=== PATIENT | male | born 1985 | race African-American/Black ===

== ENCOUNTER 2023-06-08 16:54 | Emergency (ER) | payer OTHER, SELFPAY ==
--- NOTE | ~2023-06-08 | CT_ITS ---
EXAMINATION: CT head/brain wo IV con CLINICAL INFORMATION: Reason for Exam dizziness COMPARISON: None. TECHNIQUE: Contiguous axial imaging was performed from the skull base to vertex without intravenous contrast. Sagittal and coronal reformatted images were obtained. This CT examination was performed using dose optimization techniques as appropriate, variously including the following: * Automated exposure control * Adjustment of mA and/or kV according to patient size (this includes techniques or standardized protocols for targeted exams where dose is matched to indication/reason for exam; i.e. extremities or head) Use of iterative reconstruction technique DLP: 711.42 mGy-cm FINDINGS: No acute osseous or soft tissue abnormality. Persistent metopic suture, an anatomic variant. The mastoid air cells and visualized portions of the paranasal sinuses are well aerated. There is no evidence of acute intracranial hemorrhage or territorial infarction. No abnormal mass effect or midline shift is seen. Garsia to white matter differentiation is well preserved. No extra-axial fluid collections are identified. No hydrocephalus. No significant volume loss. There is no abnormal attenuation within the brain parenchyma. CT/CT head/brain wo IV con IMPRESSION: No acute intracranial abnormality including hemorrhage, mass effect, hydrocephalus, or acute territorial edematous infarction.
--- NOTE | ~2023-06-08 | XR_ITS ---
EXAMINATION: XR CHEST CLINICAL INFORMATION: Dizziness COMPARISON: None available. TECHNIQUE: Frontal view of the chest was obtained. FINDINGS: Slightly low lung volumes with otherwise clear lungs. No pleural effusion or pneumothorax. Normal heart size and mediastinal contours. XR/XR chest 1V IMPRESSION: No acute cardiopulmonary abnormality.
--- NOTE | 2023-06-08 17:08 | ED.GENADULT ---
HPI - General Adult General Chief complaint: Dizziness Stated complaint: Dizziness Time Seen by Provider: 06/08/23 18:41 Source: patient and family ( spouse) Mode of arrival: ambulatory Limitations: no limitations History of Present Illness HPI narrative: This is a [id number]-male, with no known medical problems, presenting to the emergency department with a complaint of dizziness x 1 week. Pt states that over the course of the last week, he has had intermittent dizziness which occur with position changing especially at nighttime when he turns. Reports that he has had no chest pain or SOB. NO hx of similar symptoms. No recent illnesses. Related Data Previous Rx's Medication Instructions Recorded amlodipine 2.5 mg tablet 2.5 mg PO DAILY #30 tabs 06/08/23 meclizine 25 mg tablet 25 mg PO BID PRN motion sickness 06/08/23 #14 tabs Allergies Allergy/AdvReac Type Severity Reaction Status Date / Time No Known Allergies Allergy Verified 06/08/23 17:13 Review of Systems Review of Systems: all other systems are reviewed and are negative Constitutional: Reports as per HPI and Reports no additional constitutional complaints Eyes: Reports as per HPI and Reports no additional eye complaints Reports system reviewed and no additional complaints, except as documented Cardiovascular: Reports as per HPI and Reports no additional cardiovascular complaints Respiratory: Reports as per HPI and Reports no additional respiratory complaints Gastrointestinal: Reports as per HPI and Reports no additional gastrointestinal complaints Genitourinary: Reports no additional female genitourinary complaints Musculoskeletal: Reports no additional musculoskeletal complaints Skin/Breast: Reports system reviewed and no additional complaints, except as docu Psychiatric: Reports no additional psychiatric complaints Endocrine: Reports no additional endocrine complaints Hematologic/Lymphatic: Reports no additional hematologic/lymphatic complaints Allergic/Immunologic: Reports no additional allergic/immunologic complaints Reports system reviewed and no additional complaints, except as documented and Reports Abnormal speech present [facility] Social History Social History Alcohol intake: current Alcohol intake frequency: a few times a week Smoked in Last 30 Days: No Use of substances other than those prescribed or required for medical reasons: No Advance Directives: No Advance Directives Information Provided: Yes Physical Exam ED Vital Signs: Vital Signs - 24 hr 06/08/23 17:10 06/08/23 18:00 06/08/23 21:56 Temperature 97.9 F 98.2 F 98.1 F Pulse Rate 94 93 85 Respiratory Rate 16 18 15 Blood Pressure 158/87 H 145/101 H 138/101 H Pulse Oximetry 99 98 98 Oxygen Delivery Method Room Air Room Air Room Air BMI result Body Mass Index 30.8 Vital signs have been reviewed and appear to be correct. Blood pressure elevated. Heart rate normal. Respiratory rate normal. Temperature normal. Oxygen saturation normal. Appearance: Alert. Oriented X3. No acute distress. Head: Normal external exam. Normocephalic. Atraumatic. No Mixon signs noted. No raccoon eyes noted Eyes: PERRLA. EOMI. Conjunctiva and sclera normal. Eyelids normal. ENT: TM's Normal. Pharynx normal. Uvula midline. Moist mucous membranes. No trismus noted. No drooling noted. No muffled voice noted. Neck: Normal inspection. Neck supple. FROM. No adenopathy. Thyroid Normal. No meningeal signs. No neck mass noted. CVS: Normal heart rate and rhythm. Heart sound normal. No murmurs noted. Pulses normal throughout. Respiratory: No respiratory distress. Painless inspiration. Breath sounds normal. No wheezes/rales/rhonchi noted. Chest nontender. No accessory muscle usage noted or decreased air movement noted. Abdomen: Soft and nontender. Bowel sounds normal in all 4 quadrants. No distention noted. No organomegaly noted. No visible injury noted. Back: No CVA tenderness. Full range of motion noted. Skin: Skin warm and dry. Normal skin color. Normal skin turgor. No rashes/lesions/lacerations noted. Extremities: No lower extremity edema. Extremities exhibit normal range of motion. Extremities nontender. Neuro: Oriented X 3. Cranial nerve exam: II-XII are grossly intact No motor deficit. No sensory deficit. Reflexes normal. NIH Stroke Scale Time: 19:13 Level of Consciousness: Alert Level of Consciousness Questions: Answers both questions correctly Level of Consciousness Commands: Performs both tasks correctly Best Gaze: Normal Visual: No visual loss Facial Palsy: Normal Motor Arm (Right): No drift Motor Arm (Left): No drift Motor Leg (Right): No drift Motor Leg (Left): No drift Limb Ataxia: Absent Sensory: Normal Best Language: No aphasia Dysarthia: Normal Extinction and Inattention: No abnormality Score: 0 Course Course Course Narrative: peripheral vertigo. Left shift with no leukocytosis will check urine/chest x-ray /viral panel. Reevaluation(s) Reevaluation #1: patient feels better with negative head CT and normal neuro exam, left shift without leukocytosis for unclear etiology. Found to have slightly elevated Diastat blood pressure will start the patient on and and to follow-up with PCP, Will discharge on meclizine and follow-up with PCP. Time: 21:46 Medications Administered Discontinued Medications Generic Name Dose Route Start Last Admin Trade Name [place] PRN Reason Stop Dose Admin Meclizine HCl 25 mg 06/08/23 18:56 06/08/23 19:30 Meclizine Hcl 25 Mg Tablet PO 06/08/23 18:57 25 mg ONCE ONE Administration Medical Decision Making Lab Data 06/08/23 17:58 06/08/23 17:58 Labs: Lab Results 06/08/23 06/08/23 Range/Units 17:58 20:38 WBC 8.7 (4.8-10.8) X10*3/uL RBC 5.46 (4.60-5.80) X10*6/uL Hgb 16.7 (14.0-18.0) g/dl Hct 47.8 (42.0-52.0) % MCV 87.5 (80.0-98.0) fL MCH 30.6 (27.0-33.0) pg MCHC 34.9 (31.0-36.0) g/dl RDW 13.7 (11.0-16.0) % Plt Count 181 (160-400) X10*3/uL MPV 12.0 (9.4-12.4) fL Immature Gran % (Auto) 1.8 H (0.0-0.4) % Neut % (Auto) 46.8 (45-73) % Lymph % (Auto) 36.3 (20-40) % [place] % (Auto) 12.3 H (2-11) % Eos % (Auto) 1.5 (0-4) % Baso % (Auto) 1.3 (0-2) % Lymph # (Auto) 3.2 (1.2-4.9) X10*3/uL [place] # (Auto) 1.1 (0.1-1.2) X10*3/uL Eos # (Auto) 0.1 (0.0-0.4) X10*3/uL Baso # (Auto) 0.1 (0.0-0.2) X10*3/uL Abs Immat Gran (auto) 0.16 H (0.00-0.03) X10*3/uL Absolute Neuts (auto) 4.1 (2.0-8.3) x10*3/uL Absolute Nucleated RBC 0.000 (0.0-0.012) X10*3/uL Nucleated RBC % (auto) 0.0 (0.0-0.2) /100WBC Smear Tech's Comments VERIFIED Sodium 141 (135-145) mmol/L Potassium 4.2 (3.3-5.1) mmol/L Chloride 106 (96-108) mmol/L Carbon Dioxide 22 (22-29) mmol/L Anion Gap 17 (12-20) BUN 16 (9-16) mg/dL Creatinine 0.83 (0.5-1.4) mg/dL Estim Creat Clear Calc 135.3 Estimated GFR > 60 Random Glucose 85 (60-115) mg/dL Calcium 10.0 (8.4-10.2) mg/dL Magnesium 1.8 (1.6-2.6) mg/dL Total Bilirubin 0.3 (0.0-1.0) mg/dL Direct Bilirubin 0.1 (0.0-0.5) mg/dL AST 22 (5-37) U/L ALT 47 H (0-40) U/L Alkaline Phosphatase 110 (39-117) U/L Total Protein 8.1 H (6.5-8.0) g/dL Albumin 4.4 (3.5-5.0) g/dL Urine Color Yellow Urine Appearance Clear Urine pH 6.0 (5.0-9.0) Ur Specific Halfway 1.020 (1.005-1.025) Urine Protein 100 (2+) H (Neg-Trace) mg/dL Urine Glucose (UA) Negative (Negative) mg/dL Urine Ketones Negative (Negative) mg/dL Urine Blood Small (1+) H (Negative) Urine Nitrite Negative (Negative) Ur Leukocyte Esterase Negative (Negative) Urine RBC 6-10 H (0-2) /HPF Urine WBC 0-5 (0-5) /HPF Ur Squamous Epith Cells 0-2 (0-2) /HPF Urine Bacteria None Seen (None Seen) Hyaline Casts 0-2 (0-2) /LPF Influenza Type A (PCR) NEGATIVE (Negative) Influenza Type B (PCR) NEGATIVE (Negative) RSV RNA Qual (PCR) NEGATIVE (Negative) SARS-CoV-2 RNA (RT-PCR) NEGATIVE (Negative) Discharge Plan Discharge Clinical Impression: Peripheral positional vertigo, Essential hypertension Patient Disposition: Home, Self-Care Instructions: Vertigo (ED), Chronic Hypertension (ED) Prescriptions: New meclizine 25 mg tablet 25 mg PO BID PRN (Reason: motion sickness) Qty: 14 0RF amlodipine 2.5 mg tablet 2.5 mg PO DAILY Qty: 30 0RF
[2023-06-08 17:10] VITALS: BP 158/87; PULSE 94; RESP 16; TEMP 36.6; O2SAT 99; BMI 30.8
[2023-06-08 18:00] VITALS: BP 145/101; PULSE 93; RESP 18; TEMP 36.8; O2SAT 98
--- NOTE | 2023-06-08 19:32 | PC.NURSE ---
this rn assumed care. pt a&ox4, respirations even and unlabored. pt reports intermittent dizziness for one week. pt reports the dizziness gets worse as he lays down and reports the room is spinning when he lays down. pt denies any blrriness in vision and headaches. denies injury. pt denies nausea, vomiting and diarrhea. pt medicated per mar.
--- NOTE | 2023-06-08 19:45 | PC.NURSE ---
upon this nurse assuming care, pt was noted to be standing at bedside adjusting the bed. pt stood with steady gait and bent over without difficulty.
[2023-06-08 21:56] VITALS: BP 138/101; PULSE 85; RESP 15; TEMP 36.7; O2SAT 98
== END 2023-06-08 22:08 | disposition home or self-care (01) ==
PROVIDERS: Emergency Provider Emergency Medicine
DX: H81.399 Other peripheral vertigo, unspecified ear (principal); I10 Essential (primary) hypertension; Z20.822 Contact with and (suspected) exposure to COVID-19; Z20.828 Contact with and (suspected) exposure to other viral communicable diseases
CPT/HCPCS: 0241U; 36415; 70450; 71045; 80048; 80076; 81001; 83735; 85025; 93005; 99284; 99285

== ENCOUNTER 2025-07-23 13:33 | Outpatient (AMB) | payer OTHER, SELFPAY ==
--- NOTE | 2025-07-23 13:35 | A.OFFPC_ITS ---
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 Accompanied by: Self / Same As Patient Allergies No Known Allergies Allergy (Verified 07/23/25 15:11) Medication List - Last Reconciled 07/23/25 by Nilsa Garrett PA-C No Known Home Meds Tobacco use date assessed: 07/23/25 Dental Screening Dental Screen Date: 07/23/25 Did you have a dental visit in the last 12 months?: Yes Did you have a dental problem in the last 6 months where you did not have access to dental care?: No Was dental information given to patient?: Patient has dentist HPI HPI Comments History of Present Illness Details History of Present Illness The patient is a 40 year old individual presenting for a new patient appointment and an annual physical. The patient denies any known past medical history and is not currently taking any medications. Regarding family history, the patient reports that the patient's mother from cancer. It was later clarified that the patient's mother had stage 4 uterine cervical adenocarcinoma with pulmonary metastases. Social History - Tobacco Use: The patient denies smokin g. - Alcohol Use: The patient reports occas ional alcohol consumption. [facility] Medical History (Updated 07/23/25 @ 15:25 by Nilsa Garrett PA-C) Family history of lung cancer Family history of malignant neoplasm of cervix uteri Annual physical exam Family History Father No problems noted. Mother Cancer Social History Housing: House Alcohol intake: current Alcohol intake frequency: holidays/special occasions only Patient Tobacco Use Status: Never used Tobacco service: No Current occupational status: employed Cognitive needs: No Hearing needs: No Vision needs: No Questionnaire PHQ-9 Over the last 2 weeks, how often have you been bothered by any of the following problems? 1. Little interest or pleasure in doing things: not at all 2. Feeling down, depressed, or hopeless: not at all 3. Trouble falling or staying asleep, or sleeping too much: not at all 4. Feeling tired or having little energy: not at all 5. Poor appetite or overeating: not at all 6. Feeling bad about yourself - or that you are a failure or have let yourself or your family down: not at all 7. Trouble concentrating on things, such as reading the newspaper or watching television: not at all 8. Moving or speaking so slowly that other people could have noticed. Or the opposite - being so fidgety or restless that you have been moving around a lot more than usual: not at all 9. Thoughts that you would be better off or of hurting yourself in some way: not at all Total score: 0 Depression Screening Interpretation: Negative Depression Screening Done: Yes 01510 - PHQ-9 Billing: Yes Source: Developed by Drs. Joe Goode, Lydia Nevarez, Gordon Griggs and colleagues, with an educational kim from [email or web address]. Thrive Questionnaire Date Thrive assessed: 07/23/25 I am a: Patient What is your living situation today?: I have a steady place to live Within the past 12 months, did the food you bought not last and you didn't have the money to get more?: Never true Within the past 12 months, did you worry whether your food would run out before you got money to buy more?: Never true Do you have trouble paying for medicines?: No Do you have trouble getting transportation to medical appointments?: No Do you have trouble paying your heating and electricity bill?: No Do you have trouble taking care of your child, family member or friend?: No Do you have trouble with day-to-day activities such as bathing, preparing meals, shopping, managing finances, etc.?: No Are you currently unemployed and looking for a job?: No Are you interested in more education?: No Please select the resources that you would like help with: None THRIVE Score: 0 AUDIT C Alcohol Use Questionnaire (AUDIT-C) 1. How often do you have a drink containing alcohol?: Monthly or less 2. How many drinks containing alcohol do you have on a typical day when you are drinking?: 1 or 2 3. How often do you have six or more drinks on one occasion?: Never Total Score: 1 Score Reviewed/Action Taken: No SANCHEZ-7 AMB Questionnaire SANCHEZ-7 Date SANCHEZ - 7 assessed: 07/23/25 Feeling nervous, anxious, or on edge: 0 = Not at all Not being able to stop or control worryin = Not at all Worrying too much about different things: 0 = Not at all Trouble relaxin = Not at all Being so restless that it is hard to sit still: 0 = Not at all Becoming easily annoyed or irritable: 0 = Not at all Feeling afraid as if something awful might happen: 0 = Not at all Total SANCHEZ-7 score (0-4 normal; 5-9 mild; 10-14 moderate; 15-21 severe): 0 Source: Developed by Drs. Joe Goode, Lydia Nevarez, Gordon Griggs and colleagues, with an educational kim from [email or web address]. SANCHEZ-7 Assessment Billing SANCHEZ-7 Assessment Tool: SANCHEZ-7 Assessment 80681 Review of Systems Narrative Review of Systems - General: The patient reports feeling well and denies any current complaints or bothering symptoms. Const All systems reviewed & are unremarkable except as noted in HPI and below Physical exam (Primary Care) Vital Signs: Last Vital Signs Temp 97.6 F 07/23/25 13:46 Pulse 98 07/23/25 13:46 Resp 14 07/23/25 13:46 BP 140/73 H 07/23/25 13:46 Pulse Ox 98 07/23/25 13:46 Oxygen Delivery Method Room Air 07/23/25 13:46 Care Plan Goal for BP management: <140/90 at Goal BMI result Body Mass Index 33.8 BMI Assessment/Plan discussion: High BMI High, discussed plan: lifestyle, weight reduction, dietary, physical activity, alcohol moderation and other Tobacco/Smoking Status: Tobacco use Status Tobacco use date assessed 07/23/25 07/23/25 13:42 Patient Tobacco Use Status Never used Tobacco 07/23/25 13:49 PHQ-9: PHQ-9 Score PHQ-9: Total score 0 07/23/25 13:42 Depression Screening Interpretation: Negative Thrive Assessment: Date of Thrive Assessment Date Thrive assessed 07/23/25 07/23/25 13:42 Narrative Physical Exam Appearance: Alert. Oriented X3. No acute distress. Head: Normal external exam. Normocephalic. Atraumatic. Eyes: Pupils are equal, round, and reactive to light. Extraocular movements intact. Conjunctiva and sclera normal. Eyelids normal. Ears: External auditory canal normal. Tympanic membranes normal. Throat: Pharynx normal. Uvula midline. Moist mucous membranes. Neck: Normal inspection. Neck supple. Full range of motion. No adenopathy. Thyroid Normal. No meningeal signs. No neck mass noted. Cardiovascular: Normal heart rate and rhythm. Heart sound normal. No murmurs noted. Pulses normal throughout. Respiratory: No respiratory distress. Painless inspiration. Breath sounds normal. No wheezes/rales/rhonchi noted. Chest nontender. No accessory muscle usage noted or decreased air movement noted. Abdomen: Soft and nontender. Bowel sounds normal in all 4 quadrants. No distention noted. No organomegaly noted. No visible injury noted. Back: No costovertebral angle tenderness. Full range of motion noted. Skin: Skin warm and dry. Normal skin color. Normal skin turgor. No rashes/lesions/lacerations noted. Extremities: No lower extremity edema. Extremities exhibit normal range of motion. Extremities nontender. Neuro: Oriented X 3. No motor deficit. No sensory deficit. Reflexes normal. Office Procedures Flu Questionnaire Does the patient have a severe egg allergy?: No Does the patient have severe life threatening allergies?: No Does the patient have a fever or illness today?: No Has the patient ever had Guillain-Oneida Syndrome?: No Has the patient ever had any past reaction to a flu shot?: No Immunizations Fluarix [id number] (PF) 45 mcg (15 mcg x 3)/0.5 mL IM syringe Performing Provider: Nilsa Garrett PA-C [facility] [place] [facility] Administered by: AUGUSTIN Dent on 07/23/25 13:50 Dose Route Admin Location Dispensed Lot Number Expiration Date NDC [employer] Nurse 0.5 mL IM Right Deltoid 0.5 mL [id number] 03/01/26 [id number] [employer] VIS Given Date VIS Provided VIS Publication Date 07/23/25 Single Vaccine 24 Eligibility Eligibility Date Funding Source Not [facility] Eligible 07/23/25 Private Results Reviewed Results Reviewed: - Chart Review: Patient's mother's is and had a diagnosis of uterine cervical adenocarcinoma with pulmonary metastases, stage 4. Coding Level of Care Code New Pt Level 4 (47514) New Pt Prev Care 18-39yr(02786 Diagnoses Annual physical exam Z00.00 Family history of malignant neoplasm of cervix uteri Z80.49 Family history of lung cancer Z80.1 Additional Codes PHQ-9 - 95097 - PHQ-9 Billing: Yes ([id number]) SANCHEZ-7 Assessment Billing - SANCHEZ-7 Assessment Tool: SANCHEZ-7 Assessment 61547 ([id number]) Time Spent (min) 60 Assessment & Plan Assessment & Plan (1) Annual physical exam: Code(s): Z00.00 - Encounter for general adult medical examination without abnormal findings Category: Medical Plan: Comprehensive lab work will be ordered for screening. This includes testing for diabetes, prostate, liver function, thyroid function, vitamin D, vitamin B12, folate, and magnesium. A urinalysis will be performed to check for sugar, blood, or protein. (2) Family history of malignant neoplasm of cervix uteri: Code(s): Z80.49 - Family history of malignant neoplasm of other genital organs Category: Medical Plan: Given that the patient's mother's cancer was uterine and not colon-related, a colonoscopy is not indicated at this time. The patient was advised that a screening colonoscopy will be necessary at age 40 or 45. (3) Family history of lung cancer: Code(s): Z80.1 - Family history of malignant neoplasm of trachea, bronchus and lung Category: Medical Plan: Given that the patient's mother's cancer was uterine and not colon-related, a colonoscopy is not indicated at this time. The patient was advised that a screening colonoscopy will be necessary at age 40 or 45. Plan Plan Patient was informed and verbally consented to the use of an ambient scribe for clinic note documentation during this visit. 1. Annual Physical Examination Comprehensive lab work will be ordered for screening. This includes testing for diabetes, prostate, liver function, thyroid function, vitamin D, vitamin B12, folate, and magnesium. A urinalysis will be performed to check for sugar, blood, or protein. 2. Family History Of Malignant Neoplasm Of Cervix Uteri Given that the patient's mother's cancer was uterine and not colon-related, a colonoscopy is not indicated at this time. The patient was advised that a screening colonoscopy will be necessary at age 40 or 45. 3. Follow-Up The patient will follow up in six months to review lab results. The patient will be contacted by phone if any lab results are abnormal. Discussion Notes I discussed the plan to order comprehensive screening labs, including checks for diabetes, prostate, liver, thyroid, and various vitamin levels, as well as a urinalysis. I informed the patient that after reviewing the patient's mother's records, her cancer was uterine, not colon cancer. Therefore, a colonoscopy is not needed now, but will be recommended at age 40 or 45. We agreed to a follow- up visit in six months to review the lab results, and I will call sooner if there are any significant abnormalities. Orders: Orders TSH reflex Free T4 Today Z00.00 - Encounter for general adult medical examination without abnormal findings UA CC w/rflx Micro + Cult Today Z00.00 - Encounter for general adult medical examination without abnormal findings Vitamin B12 and Folate Today Z00.00 - Encounter for general adult medical examination without abnormal findings Vitamin D 25-OH Total Today Z00.00 - Encounter for general adult medical examination without abnormal findings Magnesium Today Z00.00 - Encounter for general adult medical examination without abnormal findings Lipid Panel Today Z00.00 - Encounter for general adult medical examination without abnormal findings Comprehensive Jakin. Panel Fast Today Z00.00 - Encounter for general adult medical examination without abnormal findings Hemoglobin A1c Today Z00.00 - Encounter for general adult medical examination without abnormal findings Erythrocyte Sedimentation Rate Today Z00.00 - Encounter for general adult medical examination without abnormal findings Influenza [id number] Immunization Today Z23 - Encounter for immunization PSA,Total (Free>4and<10) Today Z00.00 - Encounter for general adult medical examination without abnormal findings Complete Blood Count Auto Diff Today Z00.00 - Encounter for general adult medical examination without abnormal findings C Reactive Protein Today Z00.00 - Encounter for general adult medical examination without abnormal findings Medications: Discontinued meclizine Discontinued Reason: Patient no longer taking 25 mg PO BID PRN 14 tabs 0RF motion sickness amlodipine Discontinued Reason: Patient no longer taking 2.5 mg PO DAILY 30 tabs 0RF Patient Instructions: Patient Instructions - Please go to the lab to have your blood drawn for the tests we discussed. - You do not need a colonoscopy screening at this time, but you should plan to get one when you turn 40 or 45 years old. - We will call you if any of your test results are abnormal. - Please schedule a follow-up appointment in six months to review your results.
[2025-07-23 13:46] VITALS: BP 140/73; PULSE 98; RESP 14; TEMP 36.4; O2SAT 98; BMI 33.8
[2025-07-23 15:10] VITALS: BP 137/73; PULSE 85
== END 2025-07-23 14:14 | disposition home or self-care (01) ==
LOC: HO.HMCSH 13:33
PROVIDERS: PCP Physician Assistant Medical; Visit Provider Physician Assistant Medical
DX: Z00.00 Encounter for general adult medical examination without abnormal findings (principal); Z80.49 Family history of malignant neoplasm of other genital organs; Z80.1 Family history of malignant neoplasm of trachea, bronchus and lung; Z23 Encounter for immunization

== ENCOUNTER → 2025-07-23 13:33 | Outpatient (BNVA) | payer OTHER, SELFPAY | PROVIDERS: PCP Physician Assistant Medical; Visit Provider Physician Assistant Medical | DX: Z00.00 Encounter for general adult medical examination without abnormal findings (principal); Z23 Encounter for immunization; Z80.49 Family history of malignant neoplasm of other genital organs; Z80.1 Family history of malignant neoplasm of trachea, bronchus and lung | CPT/HCPCS: 90471; 90656; 96127 ==